=== PATIENT | male | born 1970 | race African-American/Black ===

== ENCOUNTER 2017-03-08 11:22 | Emergency (ER) | payer OTHER ==
[2017-03-08 11:26] VITALS: BP 130/67; PULSE 94; TEMP 98.4; BMI 28.5
[2017-03-08] MEDS ORDERED: DIPHTH,PERTUSS(ACELL),TET 0.5 ML DISP.SYRIN IM ONE (11:58)
[2017-03-08] MEDS ORDERED: ACETAMINOPHEN 325 MG TABLET (FP) PO ONE (11:58)
--- NOTE | 2017-03-08 12:02 | PDOC ---
History of Present Illness - General Chief Complaint: Laceration Stated Complaint: LACERATION Time Seen by Provider: 03/08/17 11:48 History Source: Patient Exam Limitations: No Limitations - History of Present Illness Initial Comments: 03/08/17 12:00 46 yr male with laceration to scalp last night after he fell, NO LOC. tetanus unknown no medical history or medications. Severity: Yes: mild Location: reports: scalp Past History - Past Medical History Allergies/Adverse Reactions: Allergies Allergy/AdvReac Type Severity Reaction Status Date / Time No Known Allergies Allergy Verified 03/08/17 11:22 Home Medications: Ambulatory Orders NK [No Known Home Medication] 07/08/14 Other medical history: back problems - Psycho/Social/Smoking Cessation Hx Anxiety: No Suicidal Ideation: No Smoking History: Current some day smoker Have you smoked in the past 12 months: Yes Number of Cigarettes Smoked Daily: 1 Information on smoking cessation initiated: Yes 'Breaking Loose' booklet given: 03/08/17 Hx Alcohol Use: Yes (weekend) Drug/Substance Use Hx: No Substance Use Type: None *Physical Exam - Vital Signs Last Vital Signs Temp Pulse Resp BP Pulse Ox 98.4 F 94 H 18 130/67 96 03/08/17 11:23 03/08/17 11:23 03/08/17 11:23 03/08/17 11:23 03/08/17 11:23 - Physical Exam General Appearance: Yes: Nourished, Appropriately Dressed HEENT: positive: EOMI, GARETT Neck: positive: Supple Respiratory/Chest: positive: Lungs Clear, Normal Breath Sounds Cardiovascular: positive: Regular Rhythm, Regular Rate Musculoskeletal: positive: Normal Inspection Extremity: positive: Normal Capillary Refill, Normal Inspection, Normal Range of Motion Integumentary: positive: Other (scalp laceration x2 1cm right parietal no bleeding, posterioe scalp wound 0.5cm linear partial thickness no bleeding ) Neurologic: positive: Fully Oriented, Alert, Normal Mood/Affect, Normal Response , Motor Strength 5/5 Procedures - Laceration/Wound Repair Right Wound Length: to 2.5 cm Wound Explored: clean Wound's Depth, Shape: superficial Irrigated w/ Saline: Yes Betadine Prep: Yes Wound Repaired With: Dermabond (no bleeding edges dry and crusted, cleaned dermabond placed good approximation ) Medical Decision Making - Medical Decision Making 03/08/17 12:08 cc: scalp laceration s/p lost balance and fell last night no LOC no bleeding, wounds cleaned dermabond glue placed wound edges are dry crusted will not approximate for vanessa tetanus updated, tylenol given i have discussed head injury dc inst with pt and he agrees with the plan of care. *DC/Admit/Observation/Transfer Diagnosis at time of Disposition: Laceration - Discharge Dispostion Disposition: HOME Condition at time of disposition: Improved - Patient Instructions Printed Discharge Instructions: DI for Laceration Repair With Dermabond Additional Instructions: take tylenol as needed every 4hrs for pain Return if any severe headache, vomiting or any other concerns keep dry for 24 hrs
[2017-03-08] MEDS ORDERED: ACETAMINOPHEN 325 MG TABLET (FP) ONE (12:05)
== END 2017-03-08 12:28 | disposition home or self-care (01) ==
LOC: JERFT 11:22
PROC: 0HQ0XZZ Repair Scalp Skin, External Approach (ICD-10-PCS; principal; 2017-03-08)
DX: S01.01XA Laceration without foreign body of scalp, initial encounter (principal); W18.39XA Other fall on same level, initial encounter; Y92.89 Other specified places as the place of occurrence of the external cause; Y99.8 Other external cause status
CPT/HCPCS: 90715; 99281-25